=== PATIENT | female | born 1955 | race Caucasian/White ===

== ENCOUNTER → 2016-07-24 | Outpatient (CLI) | payer OTHER ==
--- NOTE | 2016-07-25 09:14 | RAD ---
DATE: 07/24/2016 EXAM: MAMMO [facility] DIAG BILAT HISTORY: Follow-up COMPARISON: Note is made of a right breast examination 10/21/2015 and a bilateral study 04/21/2015 This study was interpreted with the benefit of Computerized Aided Detection (CAD). FINDINGS: The breast parenchyma is primarily fatty replaced. Breast parenchyma level density A.. Previously identified small mass in the right breast, at approximately the 6:00 position is no longer seen. The finding is compatible with a collapsed cyst. A new finding in either breast is not seen. IMPRESSION: Benign finding BI-RADS CATEGORY: 2 BENIGN FINDING(S) RECOMMENDED FOLLOW-UP: 12M 12 MONTH FOLLOW-UP PQRS compliance statement: Patient information was entered into a reminder system with a target due date 07/25/2027 for the next mammogram. Mammography is a sensitive method for finding small breast cancers, but it does not detect them all and is not a substitute for careful clinical examination. A negative mammogram does not negate a clinically suspicious finding and should not result in delay in biopsying a clinically suspicious abnormality. "Our facility is accredited by the [employer] Mammography Program."
== END | disposition home or self-care (01) ==
LOC: MAMMO 13:56
PROVIDERS: ATTEND Family Medicine
DX: R92.8 Other abnormal and inconclusive findings on diagnostic imaging of breast (principal)
CPT/HCPCS: G0204; G0279; 77062; 77066